=== PATIENT | male | born 1960 | race Caucasian/White ===

== ENCOUNTER 2020-07-01 01:07 | Emergency (ER) | payer OTHER ==
[2020-07-01 01:41] VITALS: BMI 24.4
[2020-07-01] MEDS ORDERED: ASPIRIN 81 MG CHEWABLE TABLETS PO ONE ×2 (01:59→02:57)
[2020-07-01] MEDS ORDERED: ASPIRIN 81 MG CHEWABLE TABLETS ONE (02:10)
[2020-07-01 02:20] LABS: BASO % 0.7 % (0-2.0); EOS % 2.9 % (0-4.5); HEMATOCRIT 35.9 % (35.4-49); HEMOGLOBIN 11.5 GM/dL (11.7-16.9); LYMPH % 25.6 % (8-40); MCH 29.1 pg (25.7-33.7); MCHC 32.2 g/dl (32.0-35.9); MEAN CELL VOLUME 90.4 fl (80-96); MEAN PLT VOLUME 7.8 fl (7.5-11.1); MONO % 10.2 % (3.8-10.2); NEUT % 60.6 % (42.8-82.8); PLATELET COUNT 242 K/MM3 (134-434); RBC 3.97 M/mm3 (4.00-5.60); RDW 15.9 % (11.9-15.9); WHITE BLOOD COUNT 6.8 K/mm3 (4.0-10.0)
[2020-07-01 02:40] LABS: POTASSIUM 3.1 mmol/L (3.5-5.1)
[2020-07-01] MEDS ORDERED: POTASSIUM CHLORIDE TABS 20 MEQ TABLET.ER (FP) PO ONE ×2 (02:41→02:56)
[2020-07-01 02:42] LABS: CALCIUM 8.9 mg/dL (8.5-10.1)
[2020-07-01 02:43] LABS: ALBUMIN 3.4 g/dl (3.4-5.0)
[2020-07-01 02:46] LABS: CREATININE 1.1 mg/dL (0.55-1.3)
[2020-07-01 02:47] LABS: BILIRUBIN,TOTAL 0.2 mg/dL (0.2-1)
[2020-07-01 02:48] LABS: TOT PROT 6.3 g/dl (6.4-8.2)
[2020-07-01] MEDS ORDERED: MAGNESIUM SULF 50% (8.12 MEQ/2 ML-1 GM VIAL) IVPB ONE (02:49)
[2020-07-01] MEDS ORDERED: HEPARIN NA (PORCINE) 5,000 UNITS/ML 1ML VIAL IVPUSH PRN ×2 (02:55)
[2020-07-01] MEDS ORDERED: MAGNESIUM SULFATE IN WATER 2 GM/50 ML IVPB IVPB ONE (02:56)
[2020-07-01] MEDS ORDERED: CLOPIDOGREL BISULFATE 300 MG TABLET PO ONE (02:56)
[2020-07-01] MEDS ORDERED: CLOPIDOGREL BISULFATE 300 MG TABLET ONE (03:00)
[2020-07-01] MEDS ORDERED: HEPARIN INFUSION - 25,000 UNITS/500 ML INFUS.BAG IVPB SCH (03:00)
[2020-07-01 03:05] LABS: INR 0.87 (0.83-1.09); PROTHROMBIN TIME (PATIENT) 10.6 SEC (9.7-13.0)
[2020-07-01 03:08] LABS: ACTIVATED PTT 30.3 SECONDS (25.2-36.5)
[2020-07-01] MEDS ORDERED: HEPARIN NA (PORCINE) 5,000 UNITS/ML 1ML VIAL ONE (03:15)
[2020-07-01] MEDS ORDERED: HEPARIN INFUSION - 25,000 UNITS/500 ML INFUS.BAG IVPB ONE (03:15)
[2020-07-01 03:48] VITALS: BP 111/78; PULSE 79; TEMP 97.7
== END 2020-07-01 07:13 | disposition short-term general hospital (02) ==
LOC: JER 01:07
PROC: 3E033GC Introduction of Other Therapeutic Substance into Peripheral Vein, Percutaneous Approach (ICD-10-PCS; principal; 2020-07-01)
PROC: 3E033GC Introduction of Other Therapeutic Substance into Peripheral Vein, Percutaneous Approach (ICD-10-PCS; 2020-07-01)
PROC: 3E033GC Introduction of Other Therapeutic Substance into Peripheral Vein, Percutaneous Approach (ICD-10-PCS; 2020-07-01)
DX: I21.A9 Other myocardial infarction type (principal)
CPT/HCPCS: 36415; 71045-TC-FY; 80053; 82550; 84484; 85025; 85610; 85730; 93005; 93010; 99285-25; C9803; J1644; U0003

== ENCOUNTER 2021-01-04 00:50 | Inpatient (IN) | payer OTHER ==
[2021-01-04 01:39] LABS: BASO % 0.2 % (0-2.0); EOS % 0.1 % (0-4.5); HEMATOCRIT 39.7 % (35.4-49); HEMOGLOBIN 13.1 GM/dL (11.7-16.9); LYMPH % 26.3 % (8-40); MCH 29.6 pg (25.7-33.7); MCHC 33.1 g/dl (32.0-35.9); MEAN CELL VOLUME 89.6 fl (80-96); MEAN PLT VOLUME 7.3 fl (7.5-11.1); MONO % 8.1 % (3.8-10.2); NEUT % 65.3 % (42.8-82.8); PLATELET COUNT 231 10^3/uL (134-434); RBC 4.43 M/mm3 (4.00-5.60); RDW 15.5 % (11.9-15.9); WHITE BLOOD COUNT 8.9 K/mm3 (4.0-10.0)
[2021-01-04 01:50] LABS: INR 0.94 (0.83-1.09); PROTHROMBIN TIME (PATIENT) 11.6 SEC (9.7-13.0)
[2021-01-04 01:53] LABS: ACTIVATED PTT 27.3 SECONDS (25.2-36.5)
[2021-01-04 02:02] LABS: CALCIUM 9.4 mg/dL (8.5-10.1)
[2021-01-04 02:03] LABS: ALBUMIN 4.5 g/dl (3.4-5.0); MAGNESIUM 2.2 mg/dL (1.8-2.4)
[2021-01-04 02:07] LABS: BILIRUBIN,TOTAL 0.3 mg/dL (0.2-1); TOT PROT 7.7 g/dl (6.4-8.2)
[2021-01-04 02:11] LABS: N-TERMINAL BNP 6981.2 pg/ml (5-125)
[2021-01-04] MEDS ORDERED: FUROSEMIDE 40 MG/4 ML INJECTABLE VIAL IVPUSH ONE (02:27)
[2021-01-04 02:28] LABS: BLOOD UREA NITROGEN 17.4 mg/dL (7-18); CREATININE 1.2 mg/dL (0.55-1.3)
[2021-01-04] MEDS ORDERED: NITROGLYCERIN 2% OINTMENT - 1GM PACKET TD ONE ×2 (02:29→02:36)
[2021-01-04] MEDS ORDERED: FUROSEMIDE 40 MG/4 ML INJECTABLE VIAL ONE ×2 (02:36→10:17)
[2021-01-04] MEDS ORDERED: ATORVASTATIN CA 20 MG TABLET (FP) PO ONE (08:19)
[2021-01-04 09:56] LABS: CHLORIDE 103 mmol/L (98-107); SODIUM 139 mmol/L (136-145)
[2021-01-04 09:58] LABS: ANION GAP 6 MMOL/L (8-16); BLOOD UREA NITROGEN 15.2 mg/dL (7-18); CALCIUM 9.3 mg/dL (8.5-10.1); CO2 31 mmol/L (21-32)
[2021-01-04 10:01] LABS: CHOLESTEROL 201 mg/dL (50-200); CREATININE 1.2 mg/dL (0.55-1.3)
[2021-01-04 10:02] LABS: TRIGLYCERIDES 78 mg/dL (0-150)
[2021-01-04 10:03] LABS: LDL CHOLESTEROL (ONLY SJRH) 131 mg/dL (5-100)
[2021-01-04 10:06] LABS: HDL CHOLESTEROL 49 mg/dL (40-60)
[2021-01-04] MEDS ORDERED: ATORVASTATIN CA 20 MG TABLET (FP) ONE (10:16)
[2021-01-04] MEDS ORDERED: POTASSIUM CHLORIDE TABS 20 MEQ TABLET.ER (FP) PO ONE (10:16)
[2021-01-04] MEDS ORDERED: METOPROLOL TARTRATE 25 MG TABLET (FP) ONE (10:16)
[2021-01-04] MEDS ORDERED: ASPIRIN 81 MG CHEWABLE TABLETS ONE (10:16)
[2021-01-04] MEDS: ASPIRIN 81 MG CHEWABLE TABLETS PO SCH (10:22)
[2021-01-04] MEDS: POTASSIUM CHLORIDE TABS 20 MEQ TABLET.ER (FP) PO SCH (10:22)
[2021-01-04] MEDS: FUROSEMIDE 40 MG/4 ML INJECTABLE VIAL IVPUSH SCH (10:23)
[2021-01-04] MEDS: METOPROLOL TARTRATE 25 MG TABLET (FP) PO SCH ×2 (10:23→21:35)
[2021-01-04 11:26] LABS: GLUCOSE,RANDOM 95 mg/dL (74-106)
[2021-01-04] MEDS ORDERED: HEPARIN NA (PORCINE) 5,000 UNITS/ML 1ML VIAL IVPUSH PRN ×2 (11:55)
[2021-01-04] MEDS ORDERED: HEPARIN INFUSION - 25,000 UNITS/500 ML INFUS.BAG IVPB ONE (12:04)
[2021-01-04] MEDS: HEPARIN - 25,000 UNIT in SODIUM CHLORIDE 495 ML IV SCH (12:19)
[2021-01-04 15:13] VITALS: BMI 23.8
[2021-01-04 18:22] LABS: INR 0.97 (0.83-1.09); PROTHROMBIN TIME (PATIENT) 11.8 SEC (9.7-13.0)
[2021-01-04 18:24] LABS: ACTIVATED PTT 45.7 SECONDS (25.2-36.5)
[2021-01-04] MEDS ORDERED: ATORVASTATIN CA 20 MG TABLET (FP) PO SCH (22:00)
[2021-01-05 07:46] LABS: BASO % 0.7 % (0-2.0); EOS % 1.8 % (0-4.5); HEMATOCRIT 39.6 % (35.4-49); LYMPH % 38.7 % (8-40); MCH 29.6 pg (25.7-33.7); MEAN CELL VOLUME 89.7 fl (80-96); MEAN PLT VOLUME 8.6 fl (7.5-11.1); MONO % 6.6 % (3.8-10.2); NEUT % 52.2 % (42.8-82.8); PLATELET COUNT 247 10^3/uL (134-434); RBC 4.41 M/mm3 (4.00-5.60); RDW 15.7 % (11.9-15.9); WHITE BLOOD COUNT 6.9 K/mm3 (4.0-10.0)
[2021-01-05 07:52] LABS: CHLORIDE 104 mmol/L (98-107); SODIUM 139 mmol/L (136-145)
[2021-01-05 07:57] LABS: CALCIUM 9.2 mg/dL (8.5-10.1)
[2021-01-05 07:58] LABS: ANION GAP 8 MMOL/L (8-16); BLOOD UREA NITROGEN 29.4 mg/dL (7-18); CO2 28 mmol/L (21-32); GLUCOSE,RANDOM 89 mg/dL (74-106)
[2021-01-05 08:01] LABS: CREATININE 1.5 mg/dL (0.55-1.3)
[2021-01-05] MEDS: FUROSEMIDE 40 MG/4 ML INJECTABLE VIAL IVPUSH SCH (09:31)
[2021-01-05] MEDS: ASPIRIN 81 MG CHEWABLE TABLETS PO SCH (09:31)
[2021-01-05] MEDS: METOPROLOL TARTRATE 25 MG TABLET (FP) PO SCH (09:31)
[2021-01-05] MEDS: POTASSIUM CHLORIDE TABS 20 MEQ TABLET.ER (FP) PO SCH (09:31)
[2021-01-05] MEDS: HEPARIN - 25,000 UNIT in SODIUM CHLORIDE 495 ML IV SCH ×3 (09:34→19:08)
[2021-01-05] MEDS ORDERED: CLOPIDOGREL BISULFATE 75 MG TABLET (FP) PO SCH (11:45)
[2021-01-05 18:15] VITALS: BP 102/69; PULSE 60; TEMP 97.6
== END 2021-01-05 19:38 | disposition short-term general hospital (02) | DRG 194 ==
LOC: JER 00:50 → JERBED 04:07 → J4W 14:26
PROVIDERS: ADMIT Hospitalist; ATTEND Family Medicine
DX: I13.0 Hypertensive heart and chronic kidney disease with heart failure and stage 1 through stage 4 chronic kidney disease, or unspecified chronic kidney disease (principal); I50.22 Chronic systolic (congestive) heart failure; I21.4 Non-ST elevation (NSTEMI) myocardial infarction; R77.8 Other specified abnormalities of plasma proteins; I25.10 Atherosclerotic heart disease of native coronary artery without angina pectoris; E78.5 Hyperlipidemia, unspecified; Z95.5 Presence of coronary angioplasty implant and graft; N18.9 Chronic kidney disease, unspecified
CPT/HCPCS: 36415; 71045-TC-FY; 80048; 80053; 80061; 82550; 82553; 83721; 83735; 83880; 84484; 85025; 85610; 85730; 93005; 93010; 93306-TC; 99285-25; C9803; J1644; U0003; U0005